=== PATIENT | female | born 1990 | race Two or more races ===

== ENCOUNTER 2018-01-13 13:08 | Emergency (ER) | payer OTHER ==
[~2018-01-13] VITALS: Ht 180.3 cm; Wt 76.7 kg
[~2018-01-13 13:08] MED LIST: ALLEGRA30 MG PO; LEVAQUIN500 MG PO; NOHOMEMEDS; PREDNISONE20 MG PO; PREVACID15 M2 PO; PROVENTIL2.5 MG/3 M IH; ZITHROMAX Z-PA250 MG PO
[2018-01-13 14:40] LABS: HEMATOCRIT 39.5 % (36.0-46.0); HEMOGLOBIN 13.3 G/DL (11.9-15.5); MCH 31.8 PG (29.0-34.0); MCHC 33.7 G/DL (30.0-36.0); MCV 94.5 FL (83-99); PLATELET COUNT 159 K/uL (156-360); RBC DIS.WIDTH-CV 11.9 % (11.8-14.6); RBC DIS.WIDTH-SD 41.7 % (39-53); RED BLOOD COUNT 4.18 M/uL (3.80-5.20); WHITE BLOOD COUNT 10.6 K/uL (4.1-10.2)
[2018-01-13 14:47] LABS: CHLORIDE 108 mEq/L (99-109); POTASSIUM 4.5 mEq/L (3.7-5.4); SODIUM 138 mEq/L (136-147)
[2018-01-13] MEDS ORDERED: ZOLOFT50 MG PO (14:48)
[2018-01-13 14:49] LABS: GLUCOSE 110 mg/dL (70-99); TOTAL PROTEIN 6.4 g/dL (6.4-8.3)
[2018-01-13 14:51] LABS: TOTAL BILIRUBIN 0.3 mg/dL (0.0-1.0)
[2018-01-13 14:52] LABS: ALKALINE PHOSPHATASE 43 IU/L (3-129)
[2018-01-13 14:53] LABS: CREATININE 0.9 mg/dL (0.6-1.3); GFR ESTIMATE (CALCULATED) > 59 mL/min/
[2018-01-13 14:54] LABS: AST (GOT) 19 IU/L (2-34); UREA NITROGEN (BUN) 12 mg/dL (9-23)
[2018-01-13 14:55] LABS: ALT (GPT) 19 IU/L (3-49)
[2018-01-13 14:56] LABS: LIPASE 16 U/L (1.0-51.0)
[2018-01-13 15:05] LABS: QUANTITATIVE HCG < 4.0 MIU/ML
[2018-01-13 15:09] LABS: APPEARANCE CLEAR ((CLEAR)); BILIRUBIN NEGATIVE; BLOOD NEGATIVE; COLOR YELLOW ((YELLOW)); GLUCOSE (STRIP) NEGATIVE; KETONES NEGATIVE; LEUKOCYTES NEGATIVE; NITRITE NEGATIVE; PROTEIN (STRIP) 30; SPECIFIC GRAVITY 1.028 (1.000-1.030); UCUL ADDED? NO; UROBILINOGEN 0.2 MG/DL (0.2-1.0)
[2018-01-13] MEDS ORDERED: BENTYL10 MG PO (18:10)
[2018-01-13] MEDS ORDERED: PRILOSEC20 MG PO (18:10)
[2018-01-13 18:19] VITALS: BP 132/85
== END 2018-01-13 18:20 | disposition home or self-care (01) ==
LOC: EME 13:08
DX: R10.30 Lower abdominal pain, unspecified (principal); F17.200 Nicotine dependence, unspecified, uncomplicated
CPT/HCPCS: 74177; 80053; 81003; 83690; 84702; 85027; 87177; 87493; 87506; 99281; 99284; J2405; J7030